=== PATIENT | female | born 1975 | race Caucasian/White ===

== ENCOUNTER 2021-02-07 00:18 | Emergency (ER) | payer OTHER ==
[~2021-02-07 00:18] MED LIST: ONDANSETRON ODT4 MG SL
[2021-02-07 00:39] LABS: BASOPHIL 0.5 % (0-2); HGB 13.7 g/dl (12.5-16.0); LYMPHOCYTE 42.9 % (15-48); MCH 33.6 pg (25.0-31.0); MCHC 34.3 g/dL (32.0-36.0); MPV 10.4 fL (6.0-9.5); NEUTROPHIL 46.3 % (41-80); NRBC 0; PLT 252 K/uL (150-400); RBC 4.08 M/uL (4.20-5.40); RDW 12.9 % (11.5-14.0)
[2021-02-07 00:49] LABS: INR 0.94 (0.9-1.2); PROTHROMBIN TIME 11.9 SECONDS (11.4-13.6); PTT 27.1 SECONDS (22.2-34.7)
[2021-02-07 00:56] LABS: ALBUMIN 3.5 g/dL (3.4-5.0); BILIRUBIN - TOTAL 0.2 mg/dL (0.2-1.0); BUN/CREAT RATIO (CALC) 22.2 RATIO; CREATININE 0.72 mg/dL (0.51-0.95); GLOBULIN (CALCULATION) 3.4 g/dL; POTASSIUM 4.1 mmol/L (3.5-5.1); TOTAL PROTEIN 6.9 g/dL (6.4-8.2)
[2021-02-07] MEDS ORDERED: NORCO 5-325 TA1 EACH PO (04:17)
[2021-02-07] MEDS ORDERED: CYCLOBENZAPRINE10 MG PO (04:17)
[2021-02-07] MEDS ORDERED: MOBIC7.5 MG PO (04:17)
[2021-02-07] MEDS ORDERED: MEDROL 4MG DOSEP4 MG PO (04:17)
[2021-02-07] MEDS ORDERED: PROTONIX 40MG T40 MG PO (04:17)
== END 2021-02-07 04:30 | disposition home or self-care (01) ==
LOC: FER 00:18
PROVIDERS: Emergency Medicine Emergency Medical Services
DX: R07.89 Other chest pain (principal); K21.9 Gastro-esophageal reflux disease without esophagitis; R06.02 Shortness of breath; R42 Dizziness and giddiness; F17.210 Nicotine dependence, cigarettes, uncomplicated; Z90.710 Acquired absence of both cervix and uterus; Z98.51 Tubal ligation status; Z88.5 Allergy status to narcotic agent
CPT/HCPCS: 36415; 71045; 80053; 83690; 84484; 85025; 85379; 85610; 85730; 93005; J1100; J1885